=== PATIENT | female | born 2000 | race Caucasian/White ===

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

== ENCOUNTER → 2021-04-12 12:52 | Outpatient (CLI) | payer OTHER, SELFPAY ==
[2021-04-12 15:04] LABS: HCG,Quantitative < 2 mIU/ml (0-5.42)
== END ==
PROVIDERS: Visit Provider Obstetrics & Gynecology
DX: Z32.00 Encounter for pregnancy test, result unknown (principal)
CPT/HCPCS: 36415; 84702

== ENCOUNTER 2021-10-10 19:58 | Emergency (ER) | payer OTHER, SELFPAY ==
[2021-10-10 20:15] VITALS: BP 122/74; PULSE 114; RESP 18; TEMP 38.6; O2SAT 99; BMI 31.3
[2021-10-10 20:20] LABS: Apearance,Urine Clear (Clear); Bilirubin,Urine 1+ (Negative); Blood, Urine 1+ (Negative); Color,Urine Dark Yellow (Yellow); Glucose,Urine (UA) Negative (Negative); Ketones,Urine 15 (Negative); Protein,Urine 1+ (Negative); Specific Gravity, Urine 1.025 (1.005-1.030); UTC Leukocyte Esterase,Urine Negative (Negative); UTC Nitrate,Urine Negative (Negative); Urobilinogen,Urine 2 EU/dl (0.2)
[2021-10-10 20:22] LABS: UTC Pregnancy Test, Urine Negative (Negative)
--- NOTE | 2021-10-10 20:37 | HMH.EDUTC ---
[facility] – [place] Disposition Condition on Discharge: Good Time of Disposition: 20:44 <Bharti Almazan E - Last Filed: 10/10/21 20:37> <Raymond Green - Last Filed: 10/10/21 22:21> Clinical Impression: Acute febrile illness Low back pain Qualifiers: Chronicity: unspecified Back pain laterality: unspecified Sciatica presence: unspecified whether sciatica present Qualified Code(s): M54.50 - Low back pain, unspecified Disposition: Left Against Medical Advice Instructions: DI for Low Back Pain Additional Instructions: call pcp for follow up Referrals: Lucia Lemus PA [Primary Care Provider] - Medical Decision Making - Liang Inquiry Pt receiving controlled substance: No Liang was queried for this patient: No - Lab Data Lab results reviewed: Yes: I reviewed the patient's lab results. <Bharti Almazan - Last Filed: 10/10/21 20:37> - Lab Data Result diagrams: 10/10/21 21:07 10/10/21 21:07 - CT Data CT Scan: Abdomen, Pelvis Time Received: 22:[address] Reviewed: Yes: I have viewed the radiologist's interpretation Preliminary Findings: Normal/NAD <Raymond Green S - Last Filed: 10/10/21 22:21> Vital Signs: 10/10/21 20:15 10/10/21 20:46 Temperature 101.4 F H 101.4 F H Temperature Source Oral Oral Pulse Rate [Left Radial] 114 H 102 H Respiratory Rate 18 16 Blood Pressure [Left Arm] 122/74 148/72 H Blood Pressure Mean [Left Arm] 90 97 Blood Pressure Source [Left Arm] Automatic Cuff Automatic Cuff Blood Pressure Position [Left Arm] Sitting Sitting 02 Sat by Pulse Oximetry 99 99 Oxygen Delivery Method Room Air Room Air - Lab Data Lab Results 10/10/21 20:10: Urine Color Dark yellow, Urine Appearance Clear, Urine pH 7.0, Ur Specific [place] 1.025, Urine Protein 1+, Urine Glucose (UA) Negative, Urine Ketones 15, Urine Blood 1+, Urine Nitrate Negative, Urine Bilirubin 1+ A, Urine Urobilinogen 2, Ur Leukocyte Esterase Negative 10/10/21 20:22: Tst Clinic Negative 10/10/21 21:07: WBC 8.2, RBC 4.73, Hgb 14.3, Hct 42.2, MCV 89.2, MCH 30.2, MCHC 33.8, RDW 14.4, Plt Count 246, MPV 8.2, Neut % (Auto) 81.1 H, Lymph % (Auto) 9.6 L, [place] % (Auto) 8.2, Eos % (Auto) 0.8, Baso % (Auto) 0.3, Neut # (Auto) 6.6, Lymph # (Auto) 0.8, [place] # (Auto) 0.7, Eos # (Auto) 0.1, Baso # (Auto) 0.0 10/10/21 21:07: Sodium 136, Potassium 4.1, Chloride 101, Carbon Dioxide 25, Anion Gap 14.1, BUN 11, Creatinine 0.80, Estimated Creat Clear 157, Estimated GFR 92, Est GFR ( Amer) 112, Glucose 103 H, Calcium 9.2, Total Bilirubin 0.7, Direct Bilirubin 0.1, Conjugated Bilirubin 0.0, Indirect Bilirubin 0.6, Unconjugated Bilirubin 0.7, AST 28, ALT 15, Alkaline Phosphatase 52, Total Protein 8.4 H, Albumin 4.6, Amylase 68, Lipase 50 Orders (Tests/Meds): ED MEDICATIONS Generic Name Dose Route Start Last Admin Trade Name Freq PRN Reason Stop Dose Admin Sodium Chloride 1,000 mls @ 999 mls/hr 10/10/21 22:00 Sod Chlor 0.9% 1000ml Bag IV 10/10/21 23:00 .Q1H1M LATONIA Discontinued Medications Generic Name Dose Route Start Last Admin Trade Name Freq PRN Reason Stop Dose Admin Iopamidol 75 ml 10/10/21 21:18 10/10/21 21:19 Iopamidol-370 (76%);100ml Bottle IV 10/10/21 21:19 75 ml ONCE ONE Administration Ketorolac Tromethamine 30 mg 10/10/21 21:48 10/10/21 21:58 Ketorolac 30mg/Ml Vial IV 10/10/21 21:49 30 mg ONCE ONE Administration Ondansetron HCl 4 mg 10/10/21 21:48 10/10/21 21:58 Ondansetron 4mg/2ml Vial IV 10/10/21 21:49 4 mg ONCE ONE Administration Sodium Chloride 10 ml 10/10/21 21:18 10/10/21 21:19 Sodium Chloride 0.9% 10ml Syr (Rad Only) IV 10/10/21 21:19 10 ml ONCE ONE Administration ORDERS Category Date Time Status Urinalysis and Microscopic Stat Lab 10/10/21 22:08 Ordered Urine Culture Stat Micro 10/10/21 22:08 Ordered Medical Decision Narrative: Patient laying in room crying rating pain 8/10 States that she is having severe pain in her lower back upon
--- NOTE | 2021-10-10 20:38 | PC.NURSE ---
Pt being sent to ED for further eval
--- NOTE | 2021-10-10 20:39 | PC.NURSE ---
LIMNOLOGY TEACHER gave report to Simi Givens
[2021-10-10 20:46] VITALS: BP 148/72; PULSE 102; RESP 16; TEMP 38.6; O2SAT 99; BMI 31.3
--- NOTE | 2021-10-10 20:53 | CT_ITS ---
PROCEDURE INFORMATION: Exam: CT Abdomen And Pelvis With Contrast Exam date and time: 10/10/2021 8:53 PM Age: 20 years old Clinical indication: Fever; Abdominal pain; Additional info: Back pain, fever TECHNIQUE: Imaging protocol: Computed tomography of the abdomen and pelvis with contrast. Radiation optimization: All CT scans at this facility use at least one of these dose optimization techniques: automated exposure control; mA and/or kV adjustment per patient size (includes targeted exams where dose is matched to clinical indication); or iterative reconstruction. Contrast material: ISOVUE; Contrast volume: 75 ml; Contrast route: IV; COMPARISON: ABDPELW CT abdomen pelvis w con 06/03/2018 6:55 PM FINDINGS: Lungs: No mass/infiltrate at either lung base. No pleural effusion. Liver: The liver is normal in size and attenuation. Diminished attenuation within the lateral aspect of the medial segment of the left hepatic lobe adjacent to the falciform ligament. This is felt to represent focal fatty infiltration. No intrahepatic biliary dilitation. Gallbladder and bile ducts: Normal. No calcified stones. No ductal dilation. Gallbladder wall thickness is normal. Pancreas: Normal. No ductal dilation. Spleen: Normal. No splenomegaly. Adrenal glands: Normal. No mass. Kidneys and ureters: Normal. No hydronephrosis. Stomach and bowel: Unremarkable. No obstruction. No mucosal thickening. Small bowel mesentery is normal. Appendix: Unremarkable. Intraperitoneal space: Unremarkable. No free air. No significant fluid collection. Vasculature: Unremarkable. No abdominal aortic aneurysm. Lymph nodes: Unremarkable. No enlarged lymph nodes. Urinary bladder: Unremarkable as visualized. Reproductive: An intrauterine device is in place. Otherwise unremarkable. Bones/joints: Unremarkable. No acute fracture. Soft tissues: There is a small umbilical hernia which contains fat. IMPRESSION: No evidence of acute process within the abdomen or pelvis.
[2021-10-10 21:14] LABS: Basophils % 0.3 % (0.1-2.0); Eosinophils # 0.1 K/mm3 (0.0-0.4); Eosinophils % 0.8 % (0.1-12.0); Hematocrit 42.2 % (37.0-47.0); Hemoglobin 14.3 g/dL (12.2-16.2); Lymphocytes # 0.8 K/mm3 (0.7-4.5); Lymphocytes % 9.6 % (10-50); Mean Corpuscular HGB Conc 33.8 g/dL (31.8-35.4); Mean Corpuscular Hemoglobin 30.2 pg (27.0-31.2); Mean Corpuscular Volume 89.2 fl (81-99); Mean Platelet Volume 8.2 fl (7.4-10.4); Monocytes # 0.7 K/mm3 (0.1-1.0); Monocytes % 8.2 % (1.7-9.3); Neutrophils # 6.6 K/mm3 (1.8-7.8); Neutrophils % 81.1 % (37.0-80.0); Platelet Count 246 K/mm3 (142-424); Red Blood Count 4.73 M/mm3 (4.20-5.40); Red Cell Distribution Width 14.4 % (11.5-17.5); White Blood Count 8.2 K/mm3 (4.5-13.0)
[2021-10-10 21:32] LABS: Alanine Aminotransferase 15 U/L (12-78); Albumin Level 4.6 g/dl (3.5-5.0); Alkaline Phosphatase 52 U/L (38-126); Amylase 68 U/L (30-110); Anion Gap 14.1 mEq/L (5-15); Aspartate Amino Transferase 28 U/L (14-36); Bilirubin,Direct 0.1 mg/dl (0.0-0.4); Bilirubin,Indirect 0.6 mg/dL (0.0-0.9); Bilirubin,Total 0.7 mg/dl (0.2-1.3); Bilirubin,Unconjugated 0.7 mg/dL (0.0-1.1); Blood Urea Nitrogen 11 mg/dl (7-17); Calcium 9.2 mg/dl (8.4-10.2); Carbon Dioxide 25 mmol/L (22.0-30.0); Chloride 101 mmol/L (98-107); Creatinine Clearance Estimated 157 mL/min (50-200); Estimated Glomerular Filt Rate 92 ml/min (>60); GFR (African American) 112 ML/MIN (>60); Glucose 103 mg/dl (74-100); Lipase 50 U/L (23-300); Potassium 4.1 mmoL/L (3.5-5.1); Sodium 136 mmol/L (136-145); Total Protein,Serum 8.4 g/dl (6.3-8.2)
[2021-10-10 22:12] LABS: Microscopic, Urine URINE MICROSCOPIC (MICROSCOPIC)
--- NOTE | 2021-10-10 22:19 | PC.NURSE ---
Discussed continuing treatment and patient stated i don't even want this, I'm feeling fine, can you take this IV out please, I'll just go home or [place] or something ; Dr Green attempted to explain that the scan of the abdomen didn't cover scans of the spine and how the two tests were different. Patient continues to refuse. Pt's stated multiple times Please just take my IV out I don't fing want this . Pt signed out against medical advise despite knowing all potential consequences. Ambulated out of facility, while talking on her phone following IV removal. GCS 15. Denies distress other than being aggravated.
[2021-10-10 22:21] LABS: Appearance,Urine CLEAR (Clear); Bilirubin,Urine Negative (Negative); Blood, Urine 1+ (Negative); Color,Urine YELLOW (Yellow); Glucose,Urine (UA) Negative (Negative); Ketones,Urine TRACE (Negative); Leukocyte Esterase,Urine Negative (Negative); Nitrate,Urine Negative (Negative); PH,Urine 7.5 (5.0-8.5); Protein,Urine TRACE (Negative)
[2021-10-10 22:22] VITALS: BP 130/70; PULSE 75; RESP 22; TEMP 36.8; O2SAT 99
[2021-10-10 22:26] LABS: C-Reactive Protein 54.9 mg/L (0-4)
[2021-10-10 22:38] LABS: Bacteria,Urine 3+ /lpf
[2021-10-10 22:39] LABS: Erythrocyte Sedimentation Rate 25 mm/hr (0-20)
== END 2021-10-10 22:25 | disposition left against medical advice (07) ==
LOC: UTC 20:00 → ER 20:45
PROVIDERS: Nurse Practitioner; Emergency Provider Emergency Medicine; PCP Physician Assistant
DX: M54.50 Low back pain, unspecified (principal); R50.9 Fever, unspecified; F17.210 Nicotine dependence, cigarettes, uncomplicated
CPT/HCPCS: 74177; 80048; 80076; 81001; 81003; 81025; 82150; 83690; 85025; 85651; 86140; 87086; 96365; 96375; 99283; 99284; J2405; Q9967

== ENCOUNTER → 2021-10-21 16:00 | Outpatient (CLI) | payer OTHER, SELFPAY | PROVIDERS: Visit Provider Physician Assistant | DX: M54.50 Low back pain, unspecified (principal) | CPT/HCPCS: 87086 ==

== ENCOUNTER 2023-02-14 10:34 | Emergency (ER) | payer SELFPAY ==
[2023-02-14 10:35] VITALS: BP 94/70; PULSE 108; RESP 16; TEMP 36.9; O2SAT 100; BMI 36.6
--- NOTE | 2023-02-14 10:55 | EXP.UTC ---
Discharge Plan Disposition Patient Disposition: Home, Self-Care Condition: Good Prescriptions Prescriptions: New azithromycin [Zithromax] 250 mg tablet 250 mg PO UD DOSE PK Qty: 6 0RF Rx Instructions: Take two (2) tablets today, then one (1) tablet days #2 thru #5 [id number]-okqeyplas-[id number] [Bromfed DM] 2-30-10 mg/5 mL Syrup 5 ml PO Q6H PRN (Reason: Cough) Qty: 240 0RF ondansetron 4 mg Tablet,Disintegrating 4 mg PO Q8H PRN (Reason: Nausea) Qty: 12 0RF No Action naproxen 375 mg tablet 375 mg PO BID PRN (Reason: pain) Qty: 20 0RF cyclobenzaprine 10 mg tablet 10 mg PO HS Qty: 30 0RF Mirena 20 mcg/24 hours (6 yrs) 52 mg intrauterine device 1 unit INTRAUTERI ONCE Referrals Follow up/Referrals: Provider,Referral, MD [Primary Care Provider] - See instructions Activity Restrictions/Add. Instructions Additional Instructions/Restrictions: Drink plenty of fluids. Take tylenol or ibuprofen for pain or fever. Take the medications as directed. Follow up with your regular doctor. GO TO THE ER FOR ANY WORSENING SYMPTOMS If your abdominal pain worsens or continues, please return and go through the ER. Clinical Impressions Clinical Impression: Acute bronchitis, Abdominal pain Instructions Patient Instructions: DI for Acute Bronchitis, DI for Abdominal Pain-Adult Discharge ED Provider: Eric Valdovinos [facility] General Stated complaint: stomach pain Mode of Arrival: Ambulatory Source of Information: Patient Limitations: No Limitations Time Seen by Provider: 02/14/23 10:55 Description of Symptoms (Recalled from Triage Doc. by RN): Patient reports lower stomach pain and that it hurts to cough. States that it started 2 days ago and it got worse last night. States it hurts under her belly button. HEENT Symptoms (Recalled from RN notes): No Resp Symptoms (Recalled from RN notes): No Skin Symptoms (Recalled from RN notes): No MS Symptoms (Recalled from RN notes): No Functional Status (Recalled from RN notes): wnl History of Present Illness Provider Complaint: She states that for the past 2 days she has had intermittent abdominal cramping, diarrhea, and nausea. Related Data Home Medications Medication Instructions Recorded Confirmed levonorgestrel 21 mcg/24 hours (8 1 unit intrauterine ONCE 12/11/20 10/21/21 yrs) 52 mg intrauterine device control (Mirena) Previous Rx's Medication Instructions Recorded cyclobenzaprine 10 mg tablet 10 mg PO HS #30 tabs 10/21/21 naproxen 375 mg tablet 375 mg PO BID PRN pain #20 tabs 10/21/21 azithromycin 250 mg tablet 250 mg PO UD DOSE PK #6 tabs 02/14/23 (Zithromax) vnrgpbvxjpduyyd-zfyuebcmfxxjqyv-JZ 5 ml PO Q6H PRN Cough #240 mL 02/14/23 2 mg-30 mg-10 mg/5 mL oral syrup (Bromfed DM) ondansetron 4 mg disintegrating 4 mg PO Q8H PRN Nausea #12 tabs 02/14/23 tablet Allergies Allergy/AdvReac Type Severity Reaction Status Date / Time ibuprofen Allergy Mild sweating Verified 10/21/21 14:20 and swelling cephalexin [From Keflex] Allergy Unknown Verified 10/21/21 14:20 allergy reaction latex Allergy Unknown Verified 10/21/21 14:20 allergy reaction diphenhydramine AdvReac Mild Drowsy Verified 10/21/21 14:20 [From Benadryl] Worker's Comp Is this a Worker's Comp case?: No [facility] Disclaimer: The information contained in this section may have been updated after the patient was seen, as this information can be updated by other users. Medical History (Updated 02/14/23 @ 11:34 by Eric Valdovinos APRN) Eczema Social History Smoking Status: Current every day smoker tobacco type: cigarettes packs per day: 1 second hand exposure: Yes alcohol intake: never substance use type: marijuana current occupational status: unemployed Travel in the last 8 weeks: None household members: family housing: house ROS Obtained: Yes All systems reviewed & no addition
[2023-02-14 11:03] LABS: Apearance,Urine Clear (Clear); Bilirubin,Urine Negative (Negative); Blood, Urine Negative (Negative); Color,Urine Yellow (Yellow); Glucose,Urine (UA) Negative (Negative); Ketones,Urine Negative (Negative); Protein,Urine 3+ (Negative); UTC Leukocyte Esterase,Urine Negative (Negative); UTC Nitrate,Urine Negative (Negative); Urobilinogen,Urine 1 EU/dl (0.2)
[2023-02-14 11:39] VITALS: BP 94/70; PULSE 108; RESP 16; TEMP 36.9; O2SAT 100
== END 2023-02-14 11:40 | disposition home or self-care (01) ==
PROVIDERS: Emergency Provider Nurse Practitioner Family
DX: R10.30 Lower abdominal pain, unspecified (principal); J20.9 Acute bronchitis, unspecified; R19.7 Diarrhea, unspecified; R11.0 Nausea; F17.210 Nicotine dependence, cigarettes, uncomplicated
CPT/HCPCS: 81003; 99204; 99212; G0463